=== PATIENT | male | born 1965 | race African-American/Black ===

== ENCOUNTER 2021-06-06 14:32 | Inpatient (IN) | payer MEDICAID ==
[~2021-06-06] VITALS: Ht 180.3 cm; Wt 137.5 kg
[2021-06-06] MEDS ORDERED: SODIUM CHLORIDE 0.9% 1,000 ML IV ONE (16:15)
[2021-06-06 16:44] LABS: HEMATOCRIT. 43.1 % (42.0-52.0); HEMOGLOBIN. 14.7 g/dL (14.0-18.0); MEAN CORPUSCULAR HEMOGLOBIN 29.5 pg (28.0-32.0); MEAN CORPUSCULAR VOLUME 86.7 fL (80.0-94.0); MEAN PLATELET VOLUME 10.3 fl (7.4-10.4); PLATELET 54 x1000/uL (130-400); RED BLOOD CELL COUNT 4.97 mill/uL (4.7-6.1)
[2021-06-06] MEDS ORDERED: CEFTRIAXONE 1 G PREMIX 50 ML IV ONE (16:45)
[2021-06-06] MEDS ORDERED: SODIUM CHLORIDE 0.9% 1000ML BAG (SEPSIS BOLUS) IV ONE (16:45)
[2021-06-06 16:49] LABS: CHLORIDE 98 mEq/L (98-107)
[2021-06-06 16:50] LABS: CLARITY URINE TURBID (CLEAR); COLOR URINE ORANGE (YELLOW); KETONES URINE NEGATIVE (NEGATIVE); LEUKOCYTE ESTERASE URINE 2+ (NEGATIVE); NITRITE URINE POSITIVE (NEGATIVE); OCCULT BLOOD URINE 2+ (NEGATIVE); PROTEIN URINE 2+ (NEGATIVE); SPECIFIC GRAVITY URINE 1.028 (1.005-1.030)
[2021-06-06 17:07] LABS: PLATELET ESTIMATE DECREASED
[2021-06-06] MEDS ORDERED: MAGNESIUM/ALUMINUM HYDROXIDE/SIMETHICONE 30ML UDC PO PRN (18:45)
[2021-06-06] MEDS ORDERED: GUAIFENESIN 200MG/10ML SUGAR FREE UDC PO PRN (18:45)
[2021-06-06] MEDS ORDERED: ONDANSETRON HCL 4MG/2ML INJ IV PRN (18:45)
[2021-06-06] MEDS ORDERED: ENOXAPARIN 40MG/0.4ML SYR SUBCUT SCH (18:45)
[2021-06-06] MEDS ORDERED: CLONIDINE 0.1MG TABLET PO PRN (18:45)
[2021-06-06] MEDS ORDERED: LEVOFLOXACIN 500MG PREMIX 100 ML IV SCH (20:00)
[2021-06-06] MEDS: SODIUM CHLORIDE 0.45% 1,000 ML IV SCH (20:30)
[2021-06-06] MEDS ORDERED: DEXTROSE 50% WATER 50ML SYRINGE IV PRN (22:45)
[2021-06-06 23:00] VITALS: BP 133/74
[2021-06-07] VITALS (13 sets, daily range): BP systolic 107–146; BP diastolic 57–96
[2021-06-07] MEDS: ACETAMINOPHEN 325MG TABLET PO PRN ×2 (00:08→13:35)
[2021-06-07] MEDS: BLOOD SUGAR DIAGNOSTIC STRIP TEST SCH ×4 (06:57→20:33)
[2021-06-07 07:28] LABS: BASOPHILS % 0.1 % (0.0-2.0); EOSINOPHILS % 1.6 % (0.0-5.0); HEMATOCRIT. 37.3 % (42.0-52.0); HEMOGLOBIN. 13.1 g/dL (14.0-18.0); LYMPHOCYTES % 7.2 % (20.0-50.0); MEAN CORPUSCULAR HEMOGLOBIN 30.2 pg (28.0-32.0); MEAN CORPUSCULAR VOLUME 85.8 fL (80.0-94.0); NEUTROPHILS % 85.1 % (40.0-76.0); RED BLOOD CELL COUNT 4.34 mill/uL (4.7-6.1); RED CELL DISTRIBUTION WIDTH 12.8 % (11.6-14.6)
[2021-06-07 07:47] LABS: CHLORIDE 100 mEq/L (98-107)
[2021-06-07 07:54] LABS: MEAN PLATELET VOLUME 10.8 fl (7.4-10.4); PLATELET 36 x1000/uL (130-400)
[2021-06-07] MEDS: AMLODIPINE 10MG TABLET PO SCH (08:19)
[2021-06-07] MEDS: INSULIN LISPRO 100 UNITS/ML SUBCUT SCH ×4 (08:19→21:42)
[2021-06-07] MEDS ORDERED: LEVOFLOXACIN 500MG PREMIX 100 ML IV SCH (09:00)
[2021-06-07] MEDS: HYDROCODONE/ACETAMINOPHEN 5/325MG TABLET PO PRN ×2 (09:26→20:45)
[2021-06-07] MEDS: SODIUM CHLORIDE 0.45% 1,000 ML IV SCH ×2 (11:22→20:34)
[2021-06-07] MEDS ORDERED: CABE0.5T2 MT (14:56)
[2021-06-07] MEDS ORDERED: GLIM4TAB36 MT (14:56)
[2021-06-07] MEDS ORDERED: NALOXONE HCL 0.4MG/ML VIAL IV PRN (19:00)
[2021-06-07] MEDS: POTASSIUM CHLORIDE 20MEQ TABLET SR PO SCH (20:33)
[2021-06-07] MEDS: LEVOFLOXACIN 500MG PREMIX 100 ML IV SCH (20:33)
[2021-06-07] MEDS: INSULIN GLARGINE UD 100 UNITS/ML SYR SUBCUT SCH (21:44)
[2021-06-08] VITALS (13 sets, daily range): BP systolic 118–143; BP diastolic 54–90
[2021-06-08] MEDS: ACETAMINOPHEN 325MG TABLET PO PRN (02:53)
[2021-06-08] MEDS: BLOOD SUGAR DIAGNOSTIC STRIP TEST SCH ×4 (05:56→21:00)
[2021-06-08 07:21] LABS: HEMATOCRIT. 38.3 % (42.0-52.0); HEMOGLOBIN. 13.3 g/dL (14.0-18.0); MEAN CORPUSCULAR VOLUME 86.3 fL (80.0-94.0); RED BLOOD CELL COUNT 4.44 mill/uL (4.7-6.1); RED CELL DISTRIBUTION WIDTH 13.1 % (11.6-14.6)
[2021-06-08 07:42] LABS: PLATELET 40 x1000/uL (130-400)
[2021-06-08 08:40] LABS: CHLORIDE 105 mEq/L (98-107)
[2021-06-08] MEDS: AMLODIPINE 10MG TABLET PO SCH (08:44)
[2021-06-08] MEDS: POTASSIUM CHLORIDE 20MEQ TABLET SR PO SCH (08:44)
[2021-06-08] MEDS: INSULIN LISPRO 100 UNITS/ML SUBCUT SCH ×4 (08:44→21:00)
[2021-06-08] MEDS: SODIUM CHLORIDE 0.45% 1,000 ML IV SCH ×2 (09:30→18:12)
[2021-06-08 13:18] LABS: PLATELET ESTIMATE MARKEDLY DECREASED
[2021-06-08 16:40] LABS: TOTAL IRON BINDING CAPACITY 237 ug/dL (250-450)
[2021-06-08 17:09] LABS: VITAMIN B12 SERUM >2000 pg/mL pg/mL (211-911)
[2021-06-08] MEDS: HYDROCODONE/ACETAMINOPHEN 5/325MG TABLET PO PRN (21:53)
[2021-06-08] MEDS: LEVOFLOXACIN 500MG PREMIX 100 ML IV SCH (21:54)
[2021-06-08] MEDS: INSULIN GLARGINE UD 100 UNITS/ML SYR SUBCUT SCH (21:55)
[2021-06-09] VITALS (11 sets, daily range): BP systolic 117–158; BP diastolic 61–100
[2021-06-09] MEDS: BLOOD SUGAR DIAGNOSTIC STRIP TEST SCH ×4 (06:24→20:58)
[2021-06-09 07:15] LABS: HEMATOCRIT. 37.9 % (42.0-52.0); HEMOGLOBIN. 13.2 g/dL (14.0-18.0); MEAN CORPUSCULAR HEMOGLOBIN 30.2 pg (28.0-32.0); MEAN CORPUSCULAR VOLUME 86.5 fL (80.0-94.0); MEAN PLATELET VOLUME 10.7 fl (7.4-10.4); RED BLOOD CELL COUNT 4.38 mill/uL (4.7-6.1); RED CELL DISTRIBUTION WIDTH 13.2 % (11.6-14.6)
[2021-06-09 07:29] LABS: CHLORIDE 105 mEq/L (98-107)
[2021-06-09 07:33] LABS: PLATELET 48 x1000/uL (130-400)
[2021-06-09] MEDS: AMLODIPINE 10MG TABLET PO SCH (08:24)
[2021-06-09] MEDS: INSULIN LISPRO 100 UNITS/ML SUBCUT SCH ×4 (08:24→20:58)
[2021-06-09] MEDS: SODIUM CHLORIDE 0.45% 1,000 ML IV SCH (10:30)
[2021-06-09] MEDS ORDERED: LIDOCAINE HCL 1% 20ML VIAL (Pyxis) INJ ONE (13:22)
[2021-06-09] MEDS: LEVOFLOXACIN 500MG PREMIX 100 ML IV SCH (19:50)
[2021-06-09 20:30] LABS: PLATELET ESTIMATE MARKEDLY DECREASED
[2021-06-09] MEDS: INSULIN GLARGINE UD 100 UNITS/ML SYR SUBCUT SCH (20:57)
[2021-06-10] VITALS (14 sets, daily range): BP systolic 120–165; BP diastolic 65–97
[2021-06-10] MEDS: SODIUM CHLORIDE 0.45% 1,000 ML IV SCH ×2 (00:20→10:53)
[2021-06-10] MEDS: BLOOD SUGAR DIAGNOSTIC STRIP TEST SCH ×4 (06:56→21:00)
[2021-06-10 06:57] LABS: INR 1.1; PROTHROMBIN TIME 11.9 sec (9.6-11.0)
[2021-06-10] MEDS: INSULIN LISPRO 100 UNITS/ML SUBCUT SCH ×4 (07:44→21:00)
[2021-06-10] MEDS: AMLODIPINE 10MG TABLET PO SCH (09:23)
[2021-06-10] MEDS: LEVOFLOXACIN 500MG PREMIX 100 ML IV SCH (19:00)
== END 2021-06-10 21:01 | disposition home health service (06) | DRG 720 ==
LOC: ER 14:32 → 3WST 17:02 → ENRESERV 22:25
PROVIDERS: ADMIT Hospitalist; ATTEND Hospitalist
PROC: 02HV33Z Insertion of Infusion Device into Superior Vena Cava, Percutaneous Approach (ICD-10-PCS; principal; 2021-06-09)
PROC: B548ZZA Ultrasonography of Superior Vena Cava, Guidance (ICD-10-PCS; 2021-06-09)
DX: A41.59 Other Gram-negative sepsis (principal); N17.0 Acute kidney failure with tubular necrosis; J96.01 Acute respiratory failure with hypoxia; E43 Unspecified severe protein-calorie malnutrition; D69.6 Thrombocytopenia, unspecified; K76.0 Fatty (change of) liver, not elsewhere classified; R16.2 Hepatomegaly with splenomegaly, not elsewhere classified; E11.65 Type 2 diabetes mellitus with hyperglycemia; D64.9 Anemia, unspecified; E78.5 Hyperlipidemia, unspecified; E66.9 Obesity, unspecified; Z20.822 Contact with and (suspected) exposure to COVID-19; I10 Essential (primary) hypertension; N39.0 Urinary tract infection, site not specified; I25.10 Atherosclerotic heart disease of native coronary artery without angina pectoris; K76.9 Liver disease, unspecified; B96.1 Klebsiella pneumoniae [K. pneumoniae] as the cause of diseases classified elsewhere; Z82.49 Family history of ischemic heart disease and other diseases of the circulatory system; Z88.0 Allergy status to penicillin; Z68.41 Body mass index [BMI] 40.0-44.9, adult
CPT/HCPCS: 36415; 71045; 74176; 76700; 76937; 80053; 80076; 81003; 82105; 82140; 82270; 82378; 82607; 82746; 82962; 83036; 83540; 83550; 83605; 83735; 83880; 84145; 84153; 84484; 85025; 85044; 86301; 86850; 86900; 87077; 87186; 87426; 93005; 93970; 99291; C1725; J0696; J1815; J1956; J3490; J7030; G0103